=== PATIENT | female | born 1970 | race Caucasian/White ===

== ENCOUNTER 2018-12-06 16:29 | Emergency (ER) | payer SELFPAY | END 2018-12-06 16:58 | disposition home or self-care (01) | LOC: ERS 16:29 | DX: M79.642 Pain in left hand (principal); M79.641 Pain in right hand; E11.9 Type 2 diabetes mellitus without complications; F32.9 Major depressive disorder, single episode, unspecified; F41.9 Anxiety disorder, unspecified | CPT/HCPCS: 99283 ==